=== PATIENT | female | born 1965 ===

== ENCOUNTER 2017-03-16 07:53 | Emergency (ER) | payer OTHER, BC ==
[2017-03-16 08:07] VITALS: O2SAT 100
--- NOTE | 2017-03-16 10:04 | C.PDOC ---
History Of Present Illness 51-year-old female, presents to the emergency department with complaints of right lower leg pain s/p mechanical fall at work, ten days ago. Patient states she returned to work, and after two days, had too much pain, and was unable to work. Patient was seen outpatient, where she was given Rx for Tramadol and had a negative X-Ray. Patient states that medication makes her feel nauseated and dizzy. States she was sent to ED for MRI. Denies numbness, chest pain or shortness of breath. No sensory changes. Time Seen by Provider: 03/16/17 08:28 Chief Complaint (Nursing): Lower Extremity Problem/Injury History Per: Patient History/Exam Limitations: no limitations Onset/Duration Of Symptoms: Days Current Symptoms Are (Timing): Still Present Severity: Moderate Past Medical History Reviewed: Historical Data, Nursing Documentation, Vital Signs Vital Signs: Last Vital Signs Temp 98.3 F 03/16/17 08:06 Pulse 87 03/16/17 08:06 Resp 17 03/16/17 08:06 BP 121/83 03/16/17 08:06 Pulse Ox 100 03/16/17 10:14 Surgical History: Appendectomy Family History: States: No Known Family Hx - Social History Hx Alcohol Use: No Hx Substance Use: No - Immunization History Hx Tetanus Toxoid Vaccination: No Hx Influenza Vaccination: No Hx Pneumococcal Vaccination: No Review Of Systems Except As Marked, All Systems Reviewed And Found Negative. Constitutional: Negative for: Fever, Chills Respiratory: Negative for: Shortness of Breath Gastrointestinal: Negative for: Nausea, Vomiting Musculoskeletal: Positive for: Leg Pain Neurological: Negative for: Weakness, Numbness, Headache, Dizziness Physical Exam - Physical Exam Appears: Non-toxic, No Acute Distress Extremity: Tenderness, Capillary Refill (<2 seconds), No Deformity, No Swelling , Other (echymosis to medial aspect of right knee. Mild tenderness. FROM w/ pain ) Neurological/Psych: Oriented x3 ED Course And Treatment O2 Sat by Pulse Oximetry: 100 Medical Decision Making Medical Decision Making: Plan: * Toradol, Tylenol * Reassess and Disposition Disposition - Disposition Referrals: Hannah Leblanc MD [Staff Provider] - Disposition: HOME/ ROUTINE Disposition Time: 10:32 Condition: GOOD Additional Instructions: Follow up with the medical doctor within 1-2 days. Return if worsened. Prescriptions: Acetaminophen [Tylenol] 325 mg PO Q6 PRN #30 tab PRN Reason: Pain, Mild (1-3) Naproxen [Naprosyn] 500 mg PO BID #20 tab Instructions: Knee Sprain (ED) Forms: Work Excuse - Clinical Impression Clinical Impression: Knee sprain - PA / [employer] / Resident Statement MD/DO has reviewed & agrees with the documentation as recorded. - Scribe Statement The provider has reviewed the documentation as recorded by the Scribe (Nathalie Leblanc) All medical record entries made by the Scribe were at my direction and personally dictated by me. I have reviewed the chart and agree that the record accurately reflects my personal performance of the history, physical exam, medical decision making, and the department course for this patient. I have also personally directed, reviewed, and agree with the discharge instructions and disposition.
[2017-03-16 10:36] VITALS: BP 124/78; PULSE 86; RESP 16; TEMP 98
== END 2017-03-16 10:40 | disposition home or self-care (01) ==
LOC: C.ER 07:53
DX: S83.91XD Sprain of unspecified site of right knee, subsequent encounter (principal); W19.XXXD Unspecified fall, subsequent encounter
CPT/HCPCS: 96372; 99284; J1885